=== PATIENT | female | born 2005 | race Caucasian/White ===

== ENCOUNTER 2023-03-12 13:19 | Day surgery (SDC) | payer OTHER ==
[2023-03-11 13:57] VITALS: BMI 18.4
[2023-03-12 13:48] VITALS: TEMP 97.8
[2023-03-12 15:30] VITALS: PULSE 69; RESP 18
[2023-03-12 15:45] VITALS: BP 99/64
== END 2023-03-12 16:00 | disposition home or self-care (01) ==
LOC: FASU-ENDO 13:19
PROVIDERS: ATTEND Internal Medicine Gastroenterology
PROC: 0DB78ZX Excision of Stomach, Pylorus, Via Natural or Artificial Opening Endoscopic, Diagnostic (ICD-10-PCS; 2023-03-12)
PROC: 0DB68ZX Excision of Stomach, Via Natural or Artificial Opening Endoscopic, Diagnostic (ICD-10-PCS; 2023-03-12)
PROC: 0DB48ZX Excision of Esophagogastric Junction, Via Natural or Artificial Opening Endoscopic, Diagnostic (ICD-10-PCS; 2023-03-12)
PROC: 0DB98ZX Excision of Duodenum, Via Natural or Artificial Opening Endoscopic, Diagnostic (ICD-10-PCS; principal; 2023-03-12 14:34)
DX: K29.70 Gastritis, unspecified, without bleeding (principal); K21.00 Gastro-esophageal reflux disease with esophagitis, without bleeding
CPT/HCPCS: 81025; 88305-TC; 88342-TC